=== PATIENT | female | born 1970 | race Caucasian/White ===

== ENCOUNTER 2022-10-16 09:45 | Outpatient (RCR) | payer OTHER, SELFPAY ==
--- NOTE | 2022-08-20 14:57 | OT.OP.EVAL ---
Visit Care Team Role Provider Type Salma Benítez MD Attending Provider Non-Staff Referring Provider Specialty: Medical Address: [address] [place] [address], [id number] Email: Occupational Therapy Initial Evaluation OT Outpatient Adult Evaluation Start: 08/20/22 14:35 Freq: Status: Active Protocol: Document 08/20/22 14:36 AMS (Rec: 08/20/22 14:57 AMS [id number]) Goals Siebel Developer Goals 1. Dorys will be modified independent with home exercise program utilizing provided written and visual instructions from therapist. 2. Dorys will present with increased ability to participate in meaningful activities, including completion of work based tasks due to reduction of pain/ discomfort of R UE. This will be evidenced by Dorys's indication of 2 to 3 out of 10 on the Pain Assessment Grid relative to the R elbow. 3. Dorys will be able to verbally identify 2 to 3 different strategies/ compensatory techniques that she can utilize in the work environment. Assessment/Plan Treatment Assessment Patient is a 52 year-old left hand dominant female referred to outpatient OT secondary to chronic right lateral epicondylitis. Dorys reported symptoms presented initially in 2004 likely d/t [employer] work. She reported previously receiving therapy for this condition. 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 She is managing the symptoms via prescribed pain meds and using available carts when needed to transport items. 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 Indication of 5 to 6 out of 10 on the Pain Assessment Grid relative to the right elbow. Report of aggravation of symptoms at right lateral elbow w/ resisted R wrist extension and R middle finger extension w/ elbow in extension. She avg 27.0# of force w/ R compound filler w/ elbow in 90 degrees in flexion and 28.0# of force w/ R compound filler w/ elbow in extension w/ dynamometer II strength testing versus 94.0# of force w/ L compound filler w/ elbow in 90 degrees in flexion and 96. 0# of force w/ elbow in extension w/ dynamometer II strength testing indicating R compound filler weakness, although, there was not a significant difference between compound filler strengths with right elbow in flexion versus extension. Dorys would likely benefit from outpatient OT to address pain/ discomfort, R compound filler weakness, and develop HEP, to support her ability to engage in meaningful activities in a variety of environments with inclusion of R UE. Length of treatment (weeks) 8 Plan of Care Start Date 08/20/22 Plan of Care End Date 10/15/22 Comment 1 to 2 times per week Therapeutic Contents Active Range of Motion, Adaptive Equipment Education, Client Education,Functional Activities,Home Exercise Program,Joint Protection, Manual Therapy,Education,Self- Care,Therapeutic Activities, Therapeutic Exercises, Modalities Modalities As Needed,As Prescribed Additional Types of Modalities Ultrasound/Ice massage/Ice/ Heat
--- NOTE | 2022-09-04 11:58 | OT.OP.TRT ---
Visit Care Team Role Provider Type Salma Benítez MD Attending Provider Non-Staff Referring Provider Specialty: Medical Address: [address] [place] [address], [address] Email: Occupational Therapy Treatment Note OT Outpatient Treatment Note - Adult Start: 08/20/22 14:35 Freq: Status: Active Protocol: Document 09/04/22 11:42 AMS (Rec: 09/04/22 11:58 AMS [id number]) OT Outpatient Adult Treatment Note Session Time Visit Start Time 10:45 Visit Stop Time 11:20 Total Visit Minutes 35 Visit Information Visit Number 03/28 Plan of Care Dates 08/20/22 - 10/15/22 Insurance Information Prime; EVAL CHARGE ONLY --> then 12 auth visits Setting Treatment Setting Outpatient Care Visit Type Note Type Treatment Note General Information General Information Patient is a 52 year-old left hand dominant female referred to outpatient OT secondary to chronic right lateral epicondylitis. - Subjective Identification Type Name Identification Reconciled With Medical Record Observations Report of being ill previous week; report of 6-7 out of 10 on the Pain Assessment Grid relative to right lateral elbow w/ use. Denied any pain/ discomfort at rest post- ultrasound treatment. Report of skin irritation post- kinesiotape use given frequent removal of tape (prior to tape falling off). Reported difficulty icing given current set-up limits ability to engage in other tasks while in use. Patient/Caregiver Compliance with Home Good Exercise Program - Objective Objective Measurements Please refer to below for progress towards meeting established OT goals. Kitchen Mechanic Goals 1. Dorys will be modified independent with home exercise program utilizing provided written and visual instructions from therapist. 2. Dorys will present with increased ability to participate in meaningful activities, including completion of work based tasks due to reduction of pain/ discomfort of R UE. This will be evidenced by Dorys's indication of 2 to 3 out of 10 on the Pain Assessment Grid relative to the R elbow. 3. Dorys will be able to verbally identify 2 to 3 different strategies/ compensatory techniques that she can utilize in the work environment. - Treatment 2 Descriptor Ultrasound. 20% duty cycle, 2. 0 w/cm2. x 10 minutes. R lateral elbow; address swelling of inflammation extensors. Skin intact pre- and post- treatment. No complaints of pain/discomfort w/ modality use. 1 Descriptor Reviewed HEP. Reviewed distal wrist stretches; discomfort reported w/ elbow extension combined w/ forearm supination and wrist/digit extension. Reviewed control flexion 30 sec w/ need to support/ stabilize proximal forearm/arm w/ elbow in extension. Instructed in additional stretch (elbow ext w/ wrist/ digit ext --> going to forearm supination w/ wrist/digit extension --> to wrist flexion combined w/ wrist flexion). Discussed use of geetha bandage and/or investing in ice wrap w / attached velcro straps. - Assessment Assessment of Improvement Report of 6-7 out of 10 on Pain Assesssment Grid relative to right elbow w/ movement/ when arm in use. QuickDASH UE Outcome Measure Score = 29.55; QuickDASH Work Module Score = 50.00. QuickDASH Sports/ Performing Arts Module Score = 50.00. Scores indicate that Dorys is limited in her ability to engage in meaningful tasks in various environments, including work and recreational settings. (+) report of execution of home exercise program; reviewed importance of proximal stabilization w/ controlled wrist flexion. Included new stretch; rec 2 to 3 times per day. Discussion re: problem solving different strategies for icing given current method has 'ice bag' falling off right elbow. Discussion re: use of different motor pattern /wrist/digit flexors w/ object manipulation to reduce aggravation of inflamed/ irritated muscles. 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 - Plan Therapy Recommendations Continue with Current Program, Advance per Rehabilitation Protocol
--- NOTE | 2022-09-10 14:31 | OT.OP.TRT ---
Visit Care Team Role Provider Type Salma Benítez MD Attending Provider Non-Staff Referring Provider Specialty: Medical Address: [address] [place] [address], [phone] Email: Occupational Therapy Treatment Note OT Outpatient Treatment Note - Adult Start: 08/20/22 14:35 Freq: Status: Active Protocol: Document 09/10/22 14:24 AMS (Rec: 09/10/22 14:31 AMS [id number]) OT Outpatient Adult Treatment Note Session Time Visit Start Time 09:45 Visit Stop Time 10:20 Total Visit Minutes 35 Visit Information Visit Number 04/28 Plan of Care Dates 08/20/22 - 10/15/22 Insurance Information Prime; EVAL CHARGE ONLY --> then 12 auth visits Setting Treatment Setting Outpatient Care Visit Type Note Type Treatment Note General Information General Information Patient is a 52 year-old left hand dominant female referred to outpatient OT secondary to chronic right lateral epicondylitis. - Subjective Identification Type Name Identification Reconciled With Medical Record Observations Report of using gel sleeve every other day; denial of pain at rest. Report of 7-8 out of 10 on the Pain Assessment Grid relative to right lateral elbow w/ use ( specifically w/ throwing ball w/ ). Report of execution of distal UE stretches and controlled wrist flexion. Patient/Caregiver Compliance with Home Good Exercise Program - Objective Objective Measurements Please refer to below for progress towards meeting established OT goals. Net Sql Developer Goals 1. Dorys will be modified independent with home exercise program utilizing provided written and visual instructions from therapist. 2. Dorys will present with increased ability to participate in meaningful activities, including completion of work based tasks due to reduction of pain/ discomfort of R UE. This will be evidenced by Dorys's indication of 2 to 3 out of 10 on the Pain Assessment Grid relative to the R elbow. 3. Dorys will be able to verbally identify 2 to 3 different strategies/ compensatory techniques that she can utilize in the work environment. - Treatment 2 Descriptor Ultrasound. 20% duty cycle, 2. 0 w/cm2. x 10 minutes. R lateral elbow; address swelling of inflammation extensors. Skin intact pre- and post- treatment. No complaints of pain/discomfort w/ modality use. 1 Descriptor Red flex bar. Eccentric contraction of wrist extensors . 1 set of 5 repetitions. - Assessment Assessment of Improvement Report of 7-8 out of 10 on verbal pain scale relative to right lateral elbow w/ playing catch w/ . Denied pain at rest. Invested in gel sleeve for right elbow w/ intermittent use. Reviewed use of different motor pattern/ wrist/digit flexors w/ object manipulation to reduce aggravation of inflamed/ irritated muscles. Introduced red flex bar eccentric contraction of wrist extensors ; report of pain/discomfort. Thus, ceased exercise at 5 repetitions. 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 Home Exercise Program 09/04/22 = Reviewed distal wrist stretches; discomfort reported w/ elbow extension combined w/ forearm supination and wrist/digit extension. Reviewed controlled wrist flexion 30 sec w/ need to support/stabilize proximal forearm/arm w/ elbow in extension. Reviewed elbow ext w/ wrist/digit ext --> going to forearm supination w/ wrist /digit extension --> to wrist flexion combined w/ wrist flexion. Discussed use of geetha bandage and/or investing in ice wrap w/ attached velcro straps. - Plan Therapy Recommendations Continue with Current Program, Advance per Rehabilitation Protocol
--- NOTE | 2022-09-19 15:19 | OT.OP.TRT ---
Visit Care Team Role Provider Type Salma Benítez MD Attending Provider Non-Staff Referring Provider Specialty: Medical Address: [address] [place] [address], [address] Email: Occupational Therapy Treatment Note OT Outpatient Treatment Note - Adult Start: 08/20/22 14:35 Freq: Status: Active Protocol: Document 09/19/22 15:13 AMS (Rec: 09/19/22 15:19 AMS [id number]) OT Outpatient Adult Treatment Note Session Time Visit Start Time 09:50 Visit Stop Time 10:30 Total Visit Minutes 40 Visit Information Visit Number 05/26 Plan of Care Dates 08/20/22 - 10/15/22 Insurance Information Prime; EVAL CHARGE ONLY --> then 12 auth visits Setting Treatment Setting Outpatient Care Visit Type Note Type Treatment Note General Information General Information Patient is a 52 year-old left hand dominant female referred to outpatient OT secondary to chronic right lateral epicondylitis. - Subjective Identification Type Name Identification Reconciled With Medical Record Observations (+) report of compliance w/ HEP. Patient/Caregiver Compliance with Home Good Exercise Program - Objective Objective Measurements Please refer to below for progress towards meeting established OT goals. Correctional Supervisor Lieutenant Goals 1. Dorys will be modified independent with home exercise program utilizing provided written and visual instructions from therapist. 2. Dorys will present with increased ability to participate in meaningful activities, including completion of work based tasks due to reduction of pain/ discomfort of R UE. This will be evidenced by Dorys's indication of 2 to 3 out of 10 on the Pain Assessment Grid relative to the R elbow. 3. Dorys will be able to verbally identify 2 to 3 different strategies/ compensatory techniques that she can utilize in the work environment. - Treatment 2 Descriptor Ultrasound. 20% duty cycle, 2. 0 w/cm2. x 10 minutes. R lateral elbow; address swelling of inflammation extensors. Skin intact pre- and post- treatment. No complaints of pain/discomfort w/ modality use. 1 Descriptor Red flex bar. Eccentric contraction of wrist extensors . 1 set of 5 repetitions. - Assessment Assessment of Improvement Consistent report of pain/ discomfort at the R lateral epicondyle; increased discomfort reported w/ gentle manual to wrist extensors. Report of difficulty w/ completing work tasks d/t pain /discomfort. Have been limited in ability to progress resistance exercises d/t pain/ discomfort. Instructed to execute controlled wrist flexion against gravity without proximal UE support 3 sets of 15 repetitions versus with proximal UE support given limited ability to use resistance. If unable to progress to resistance exercises, may need to send client back to PCP. Overall, good session. 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 Home Exercise Program 09/04/22 = Reviewed distal wrist stretches; discomfort reported w/ elbow extension combined w/ forearm supination and wrist/digit extension. Reviewed controlled wrist flexion 30 sec w/ need to support/stabilize proximal forearm/arm w/ elbow in extension. Reviewed elbow ext w/ wrist/digit ext --> going to forearm supination w/ wrist /digit extension --> to wrist flexion combined w/ wrist flexion. Discussed use of geetha bandage and/or investing in ice wrap w/ attached velcro straps. - Plan Therapy Recommendations Continue with Current Program, Advance per Rehabilitation Protocol
--- NOTE | 2022-09-25 16:00 | OT.OP.TRT ---
Visit Care Team Role Provider Type Salma Beíntez MD Attending Provider Non-Staff Referring Provider Specialty: Medical Address: [address] [place] [address], [address] Email: Occupational Therapy Treatment Note OT Outpatient Treatment Note - Adult Start: 08/20/22 14:35 Freq: Status: Active Protocol: Document 09/25/22 16:00 AMS (Rec: 09/26/22 08:38 AMS [id number]) OT Outpatient Adult Treatment Note Session Time Visit Start Time 09:45 Visit Stop Time 10:30 Total Visit Minutes 45 Visit Information Visit Number 06/26 Plan of Care Dates 08/20/22 - 10/15/22 Insurance Information Prime; EVAL CHARGE ONLY --> then 12 auth visits Setting Treatment Setting Outpatient Care Visit Type Note Type Treatment Note General Information General Information Patient is a 52 year-old left hand dominant female referred to outpatient OT secondary to chronic right lateral epicondylitis. - Subjective Identification Type Name Identification Reconciled With Medical Record Observations Report of soreness after last treatment session in the afternoon; 'zapping' w/ report of 8-9 out of 10. Pain presented x 3 days. Dorys reports using sleeve to 'ice' elbow and has been executing recommended exercises ( unsupported arm w/ controlled wrist flexion) 3 x 10. Patient/Caregiver Compliance with Home Good Exercise Program - Objective Objective Measurements Please refer to below for progress towards meeting established OT goals. Usp Goals 1. Dorys will be modified independent with home exercise program utilizing provided written and visual instructions from therapist. 2. Dorys will present with increased ability to participate in meaningful activities, including completion of work based tasks due to reduction of pain/ discomfort of R UE. This will be evidenced by Dorys's indication of 2 to 3 out of 10 on the Pain Assessment Grid relative to the R elbow. 3. Dorys will be able to verbally identify 2 to 3 different strategies/ compensatory techniques that she can utilize in the work environment. - Treatment 3 Descriptor Manual. 2 Descriptor Ultrasound. 20% duty cycle, 2. 0 w/cm2. x 10 minutes. R lateral elbow; address swelling of inflammation extensors. Skin intact pre- and post- treatment. No complaints of pain/discomfort w/ modality use. 1 Descriptor Red flex bar. Eccentric contraction of wrist extensors . 1 set of 5 repetitions. - Assessment Assessment of Improvement Consistent report of pain/ discomfort at the R lateral epicondyle; increased discomfort reported w/ gentle manual to wrist extensors. Report of difficulty w/ completing work tasks d/t pain /discomfort. Increased pain/ discomfort w/ 'zapping' w/ 8-9 out of 10 on verbal pain scale w/ lateral epicondyle proximal; unable to reproduce symptoms w/ prolonged elbow flexion 30 sec hold and/or resting of elbow on arm rest. Tenderness palpated along lateral ulnar border. US completed to address swelling/ inflammation. Overall, fair session. Given increased symptoms post- previous session, did not progress to red flex bar. Rec consideration of light controlled wrist flexion w/ weight 1# DB as an alternative . 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 Home Exercise Program 09/25/22 = Controlled wrist flex 30 sec without proximal support of forearm/arm w/ elbow in ext; 3 x 10 repetitions. Instructed in passive RD of wrist w/ elbow extended and hand positioned on TT w/ hold of 20 to 30 seconds. 09/04/22 = Reviewed distal wrist stretches; discomfort reported w/ elbow extension combined w/ forearm supination and wrist/digit extension. Reviewed controlled wrist flexion 30 sec w/ need to support/stabilize proximal forearm/arm w/ elbow in extension. Reviewed elbow ext w/ wrist/digit ext --> going to forearm supination w/ wrist /digit extension --> to wrist flexion combined w/ wrist flexion. Discussed use of geetha bandage and/or investing in ice wrap w/ attached velcro straps. - Plan Therapy Recommendations Continue with Current Program, Advance per Rehabilitation Protocol
--- NOTE | 2022-10-02 09:36 | OT.OP.TRT ---
Visit Care Team Role Provider Type Salma Benítez MD Attending Provider Non-Staff Referring Provider Specialty: Medical Address: [address] [place] [address], [address] Email: Occupational Therapy Treatment Note OT Outpatient Treatment Note - Adult Start: 08/20/22 14:35 Freq: Status: Active Protocol: Document 10/02/22 09:35 [facility] (Rec: 10/02/22 09:36 [facility] [id number]) OT Outpatient Adult Treatment Note Setting Treatment Setting Outpatient Care Visit Type Note Type Administrative Note - Subjective Observations Re-faxed initial evaluation to referring physician. 2nd attempt. - - - -
--- NOTE | 2022-10-09 14:53 | OT.OP.TRT ---
Visit Care Team Role Provider Type Salma Benítez MD Attending Provider Non-Staff Referring Provider Specialty: Medical Address: [address] [place] [address], [address] Email: Occupational Therapy Treatment Note OT Outpatient Treatment Note - Adult Start: 08/20/22 14:35 Freq: Status: Active Protocol: Document 10/09/22 14:42 AMS (Rec: 10/09/22 14:53 AMS [id number]) OT Outpatient Adult Treatment Note Session Time Visit Start Time 09:45 Visit Stop Time 10:30 Total Visit Minutes 45 Visit Information Visit Number 07/26 Plan of Care Dates 08/20/22 - 10/15/22 Insurance Information Prime; EVAL CHARGE ONLY --> then 12 auth visits Setting Treatment Setting Outpatient Care Visit Type Note Type Treatment Note General Information General Information Patient is a 52 year-old left hand dominant female referred to outpatient OT secondary to chronic right lateral epicondylitis. - Subjective Identification Type Name Identification Reconciled With Medical Record Observations Report of executing stretches. Patient/Caregiver Compliance with Home Good Exercise Program - Objective Objective Measurements Please refer to below for progress towards meeting established OT goals. Longterm Goals 1. Dorys will be modified independent with home exercise program utilizing provided written and visual instructions from therapist. 10/09/22 = 25% met; upgraded HEP 2. Dorys will present with increased ability to participate in meaningful activities, including completion of work based tasks due to reduction of pain/discomfort of R UE. This will be evidenced by Dorys's indication of 2 to 3 out of 10 on the Pain Assessment Grid relative to the R elbow. 3. Dorys will be able to verbally identify 2 to 3 different strategies/ compensatory techniques that she can utilize in the work environment. - Treatment 3 Descriptor Manual. 2 Descriptor Ultrasound. 20% duty cycle, 2. 0 w/cm2. x 10 minutes. R lateral elbow; address swelling of inflammation ulnar deviators/extensors. Skin intact pre- and post- treatment. No complaints of pain/discomfort w/ modality use. Exercises 2 Descriptor Wrist strengthening. Wrist ext combined w/ 5 sec resisted descent into flex. 2 x 10. 1# DB. Wrist UD combined w/ 5 sec [address]. Elbow in ext/forearm in neutral. 2 x 10. 1# DB. 1 Descriptor Passive wrist flex w/ elbow ext and digit ext. Hold of 20 seconds. x 1 rep. Passive wrist ext w/ elbow ext and wrist/digit ext and forearm supination. Hold of 20 seconds. x [address] Elbow ext/forearm pronation w/ hand positioned on TT. Hold of 20 seconds. x 1 rep. - Assessment Assessment of Improvement Reported of executing wrist flexion motion x 3 days w/ work tasks. Able to tolerate use of 1# DB; upgraded home exercise program and exercises being completed in treatment session. Need to complete POC at time of next treatment session. 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 Home Exercise Program 10/09/22 = Provided w/ latex free medium resistance personal TB for home use; recommended starting w/ 1 x 10 reps every other day and increasing to 2 x 10 reps as tolerated. Wrist UD w/ controlled return to neutral w / hand supported on TT w/ elbow in 90 degrees flex; wrist ext w/ controlled return to wrist flex w/ elbow in 90 degrees flex. 09/25/22 = Controlled wrist flex 30 sec without proximal support of forearm/arm w/ elbow in ext; 3 x 10 repetitions. Instructed in passive RD of wrist w/ elbow extended and hand positioned on TT w/ hold of 20 to 30 seconds. 09/04/22 = Reviewed distal wrist stretches; discomfort reported w/ elbow extension combined w/ forearm supination and wrist/digit extension. Reviewed controlled wrist flexion 30 sec w/ need to support/stabilize proximal forearm/arm w/ elbow in extension. Reviewed elbow ext w/ wrist/digit ext --> going to forearm supination w/ wrist /digit extension --> to wrist flexion combined w/ wrist flexion. Discussed use of geetha bandage and/or investing in ice wrap w/ attached velcro straps. - Plan Therapy Recommendations Continue with Current Program, Advance per Rehabilitation Protocol
--- NOTE | 2022-10-16 12:10 | OT.OP.TRT ---
Visit Care Team Role Provider Type Salma Benítez MD Attending Provider Non-Staff Referring Provider Specialty: Medical Address: [address] [place] [address], [id number] Email: Occupational Therapy Treatment Note OT Outpatient Treatment Note - Adult Start: 08/20/22 14:35 Freq: Status: Active Protocol: Document 10/16/22 11:59 AMS (Rec: 10/16/22 12:10 AMS [id number]) OT Outpatient Adult Treatment Note Session Time Visit Start Time 09:45 Visit Stop Time 10:30 Visit Information Visit Number [id number] Plan of Care Dates 10/15/22 - 11/19/22 Insurance Information Prime; EVAL CHARGE ONLY --> then 12 auth visits Setting Treatment Setting Outpatient Care Visit Type Note Type Progress Note General Information General Information Patient is a 52 year-old left hand dominant female referred to outpatient OT secondary to chronic right lateral epicondylitis. - Subjective Identification Type Name Identification Reconciled With Medical Record Observations Report of executing stretches and utilizing a can for strengthening; report of having 2 ways to 'ice' elbow ( one at home and one at work). Report of intent on investing in personal 1# DB for home use . Patient/Caregiver Compliance with Home Good Exercise Program - Objective Objective Measurements Please refer to below for progress towards meeting established OT goals. Gl Accountant Goals 1. Dorys will be modified independent with home exercise program utilizing provided written and visual instructions from therapist. = 50% met 2. Dorys will present with increased ability to participate in meaningful activities, including completion of work based tasks due to reduction of pain/ discomfort of R UE. This will be evidenced by Dorys' s indication of 2 to 3 out of 10 on the Pain Assessment Grid relative to the R elbow. 3. Dorys will be able to verbally identify 2 to 3 different strategies/ compensatory techniques that she can utilize in the work environment. 10/16/22 = 75% met - Treatment 3 Descriptor Manual. 2 Descriptor Ultrasound. 20% duty cycle, 2. 0 w/cm2. x 10 minutes. R lateral elbow; address swelling of inflammation ulnar deviators/extensors. Skin intact pre- and post- treatment. No complaints of pain/discomfort w/ modality use. Exercises 2 Descriptor Wrist strengthening. Wrist ext combined w/ 5 sec resisted descent into flex. 2 x 10. 1# DB. Wrist UD combined w/ 5 sec [address] into [address]. Elbow in ext/forearm in neutral. 3 x 10. 1# DB. 1 Descriptor Range of Motion; PROM/AROM Passive wrist flex w/ elbow ext and digit ext. Hold of 20 seconds. x 1 rep. Passive wrist ext w/ elbow ext and wrist/digit ext and forearm supination. Hold of 20 seconds. x [address] Elbow ext/forearm pronation w/ hand positioned on TT. Hold of 20 seconds. x 1 rep. Active R wrist RD/UD. 2 x 10. - Assessment Assessment of Improvement Dorys has made some progress w/ outpatient OT; clinician has been able to advance recommended home exercises via utilization of 1# DB given discomfort/preference for DB versus TB. Dorys is also demonstrating increased awareness to modifying approach/techniques w/ every day and work tasks. Despite progress in these areas, Dorys continues to be limited in her day-to-day life w/ active participation in meaningful activities/work based tasks. 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 Home Exercise Program 10/09/22 = Provided w/ latex free medium resistance personal TB for home use; recommended starting w/ 1 x 10 reps every other day and increasing to 2 x 10 reps as tolerated. Wrist UD w/ controlled return to neutral w / hand supported on TT w/ elbow in 90 degrees flex; wrist ext w/ controlled return to wrist flex w/ elbow in 90 degrees flex. 09/25/22 = Controlled wrist flex 30 sec without proximal support of forearm/arm w/ elbow in ext; 3 x 10 repetitions. Instructed in passive RD of wrist w/ elbow extended and hand positioned on TT w/ hold of 20 to 30 seconds. 09/04/22 = Reviewed distal wrist stretches; discomfort reported w/ elbow extension combined w/ forearm supination and wrist/digit extension. Reviewed controlled wrist flexion 30 sec w/ need to support/stabilize proximal forearm/arm w/ elbow in extension. Reviewed elbow ext w/ wrist/digit ext --> going to forearm supination w/ wrist /digit extension --> to wrist flexion combined w/ wrist flexion. Discussed use of geetha bandage and/or investing in ice wrap w/ attached velcro straps. - Plan Therapy Recommendations Continue with Current Program, Advance per Rehabilitation Protocol Comment 5 weeks Frequency of Treatment Once a Week Therapeutic Contents Active Range of Motion, Adaptive Equipment Education, Client Education,Functional Activities,Home Exercise Program,Joint Protection, Manual Therapy,Education,Self- Care,Therapeutic Activities, Therapeutic Exercises, Modalities Modalities As Needed,As Prescribed Additional Types of Modalities Heat/Ice/Contrast/Ultrasound
--- NOTE | 2022-10-16 16:00 | OT.OPPN ---
Current Diagnoses Pain in right elbow (10/16/22) Lateral epicondylitis, unspecified elbow (10/16/22) Weakness (10/16/22) OT Progress Note OT Outpatient Treatment Note - Adult Start: 08/20/22 14:35 Freq: Status: Active Protocol: Document 10/16/22 11:59 AMS (Rec: 10/16/22 12:10 AMS [id number]) OT Outpatient Adult Treatment Note Session Time Visit Start Time 09:45 Visit Stop Time 10:30 Visit Information Visit Number 08/[id number] Plan of Care Dates 10/15/22 - 11/19/22 Insurance Information Prime; EVAL CHARGE ONLY --> then 12 auth visits Setting Treatment Setting Outpatient Care Visit Type Note Type Progress Note General Information General Information Patient is a 52 year-old left hand dominant female referred to outpatient OT secondary to chronic right lateral epicondylitis. - Subjective Identification Type Name Identification Reconciled With Medical Record Observations Report of executing stretches and utilizing a can for strengthening; report of having 2 ways to 'ice' elbow ( one at home and one at work). Report of intent on investing in personal 1# DB for home use . Patient/Caregiver Compliance with Home Good Exercise Program - Objective Objective Measurements Please refer to below for progress towards meeting established OT goals. Retirement Goals 1. Dorys will be modified independent with home exercise program utilizing provided written and visual instructions from therapist. = 50% met 2. Dorys will present with increased ability to participate in meaningful activities, including completion of work based tasks due to reduction of pain/ discomfort of R UE. This will be evidenced by Dorys' s indication of 2 to 3 out of 10 on the Pain Assessment Grid relative to the R elbow. 3. Dorys will be able to verbally identify 2 to 3 different strategies/ compensatory techniques that she can utilize in the work environment. 10/16/22 = 75% met - Treatment 3 Descriptor Manual. 2 Descriptor Ultrasound. 20% duty cycle, 2. 0 w/cm2. x 10 minutes. R lateral elbow; address swelling of inflammation ulnar deviators/extensors. Skin intact pre- and post- treatment. No complaints of pain/discomfort w/ modality use. Exercises 2 Descriptor Wrist strengthening. Wrist ext combined w/ 5 sec resisted descent into flex. 2 x 10. 1# DB. Wrist UD combined w/ 5 sec resisted descent into RD. Elbow in ext/forearm in neutral. 3 x 10. 1# DB. 1 Descriptor Range of Motion; PROM/AROM Passive wrist flex w/ elbow ext and digit ext. Hold of 20 seconds. x 1 rep. Passive wrist ext w/ elbow ext and wrist/digit ext and forearm supination. Hold of 20 seconds. x [address] Elbow ext/forearm pronation w/ hand positioned on TT. Hold of 20 seconds. x 1 rep. Active R wrist RD/UD. 2 x 10. - Assessment Assessment of Improvement Dorys has made some progress w/ outpatient OT; clinician has been able to advance recommended home exercises via utilization of 1# DB given discomfort/preference for DB versus TB. Dorys is also demonstrating increased awareness to modifying approach/techniques w/ every day and work tasks. Despite progress in these areas, Dorys continues to be limited in her day-to-day life w/ active participation in meaningful activities/work based tasks. 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 Home Exercise Program 10/09/22 = Provided w/ latex free medium resistance personal TB for home use; recommended starting w/ 1 x 10 reps every other day and increasing to 2 x 10 reps as tolerated. Wrist UD w/ controlled return to neutral w / hand supported on TT w/ elbow in 90 degrees flex; wrist ext w/ controlled return to wrist flex w/ elbow in 90 degrees flex. 09/25/22 = Controlled wrist flex 30 sec without proximal support of forearm/arm w/ elbow in ext; 3 x 10 repetitions. Instructed in passive RD of wrist w/ elbow extended and hand positioned on TT w/ hold of 20 to 30 seconds. 09/04/22 = Reviewed distal wrist stretches; discomfort reported w/ elbow extension combined w/ forearm supination and wrist/digit extension. Reviewed controlled wrist flexion 30 sec w/ need to support/stabilize proximal forearm/arm w/ elbow in extension. Reviewed elbow ext w/ wrist/digit ext --> going to forearm supination w/ wrist /digit extension --> to wrist flexion combined w/ wrist flexion. Discussed use of geetha bandage and/or investing in ice wrap w/ attached velcro straps. - Plan Therapy Recommendations Continue with Current Program, Advance per Rehabilitation Protocol Comment 5 weeks Frequency of Treatment Once a Week Therapeutic Contents Active Range of Motion, Adaptive Equipment Education, Client Education,Functional Activities,Home Exercise Program,Joint Protection, Manual Therapy,Education,Self- Care,Therapeutic Activities, Therapeutic Exercises, Modalities Modalities As Needed,As Prescribed Additional Types of Modalities Heat/Ice/Contrast/Ultrasound If you are in agreement with this Plan of Care, please return a signed and dated copy. I have reviewed this Plan of Care and certify that the skilled therapy services above are required to meet the patient?s needs. Physician Signature Date Printed Name and Credentials Clinical Instructor Signature Printed Name and Credentials
--- NOTE | 2022-11-21 09:11 | OT.OP.DC ---
Visit Care Team Role Provider Type Salma Benítez MD Attending Provider Non-Staff Referring Provider Address: [address] [place] [address], [id number] Email: OT Outpatient OT Outpatient Adult Evaluation Start: 08/20/22 14:35 Freq: Status: Active Protocol: Document 08/20/22 14:36 AMS (Rec: 08/20/22 14:57 AMS [id number]) Goals Snf Goals Snf Goals 1. Dorys will be modified independent with home exercise program utilizing provided written and visual instructions from therapist. 2. Dorys will present with increased ability to participate in meaningful activities, including completion of work based tasks due to reduction of pain/ discomfort of R UE. This will be evidenced by Dorys's indication of 2 to 3 out of 10 on the Pain Assessment Grid relative to the R elbow. 3. Dorys will be able to verbally identify 2 to 3 different strategies/ compensatory techniques that she can utilize in the work environment. Assessment/Plan Assessment Treatment Assessment Patient is a 52 year-old left hand dominant female referred to outpatient OT secondary to chronic right lateral epicondylitis. Dorys reported symptoms presented initially in 2004 likely d/t [employer] work. She reported previously receiving therapy for this condition. 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 She is managing the symptoms via prescribed pain meds and using available carts when needed to transport items. 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 Indication of 5 to 6 out of 10 on the Pain Assessment Grid relative to the right elbow. Report of aggravation of symptoms at right lateral elbow w/ resisted R wrist extension and R middle finger extension w/ elbow in extension. She avg 27.0# of force w/ R rn clinician w/ elbow in 90 degrees in flexion and 28.0# of force w/ R rn clinician w/ elbow in extension w/ dynamometer II strength testing versus 94.0# of force w/ L rn clinician w/ elbow in 90 degrees in flexion and 96. 0# of force w/ elbow in extension w/ dynamometer II strength testing indicating R rn clinician weakness, although, there was not a significant difference between rn clinician strengths with right elbow in flexion versus extension. 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 Plan Length of treatment (weeks) 8 Plan of Care Start Date 08/20/22 Plan of Care End Date 10/15/22 Comment 1 to 2 times per week Therapeutic Contents Active Range of Motion, Adaptive Equipment Education, Client Education,Functional Activities,Home Exercise Program,Joint Protection, Manual Therapy,Education,Self- Care,Therapeutic Activities, Therapeutic Exercises, Modalities Modalities As Needed,As Prescribed Additional Types of Modalities Ultrasound/Ice massage/Ice/ Heat OT Outpatient Treatment Note - Adult Start: 08/20/22 14:35 Freq: Status: Active Protocol: Document 11/21/22 09:09 [facility] (Rec: 11/21/22 09:11 [facility] [id number]) OT Outpatient Adult Treatment Note Visit Information Visit Number 08/26 Plan of Care Dates 10/15/22 - 11/19/22 Insurance Information Prime; EVAL CHARGE ONLY --> then 12 auth visits Setting Treatment Setting Outpatient Care Visit Type Note Type Discharge Summary - Subjective Observations Dorys was last seen in the outpatient setting by OT and POC 11/19/22; given that she has not been seen in > 30 days and POC recommend d/c from outpatient OT at this time and therapist to re-evaluate as deemed appropriate by PCP with new referral. - Objective Objective Measurements Please refer to below for progress towards meeting established OT goals. Snf Goals ALL GOALS D/C 11/21/22 1. Dorys will be modified independent with home exercise program utilizing provided written and visual instructions from therapist. = 50% met 2. Dorys will present with increased ability to participate in meaningful activities, including completion of work based tasks due to reduction of pain/ discomfort of R UE. This will be evidenced by Dorys' s indication of 2 to 3 out of 10 on the Pain Assessment Grid relative to the R elbow. 3. Dorys will be able to verbally identify 2 to 3 different strategies/ compensatory techniques that she can utilize in the work environment. 10/16/22 = 75% met - - Assessment Assessment of Improvement Dorys was last seen in the outpatient setting by OT and POC 11/19/22; given that she has not been seen in > 30 days and POC recommend d/c from outpatient OT at this time and therapist to re-evaluate as deemed appropriate by PCP with new referral. - Plan Therapy Recommendations Discharge from Occupational Therapy
== END 2022-11-21 15:05 | disposition home or self-care (01) ==
LOC: OT 09:45
PROVIDERS: Referring Provider Student in an Organized Health Care Education/Training Program; Visit Provider Student in an Organized Health Care Education/Training Program
DX: M77.10 Lateral epicondylitis, unspecified elbow (principal); M25.521 Pain in right elbow; R53.1 Weakness
CPT/HCPCS: 97035; 97110; 97140; 97165; 97530

== ENCOUNTER → 2024-06-01 13:39 | Outpatient (CLI) | payer OTHER, SELFPAY ==
--- NOTE | 2024-06-01 13:41 | DI.ECHO.S_ITS ---
[facility] : : [address] : : [place] : : [id number] : : Phone: [phone] Echocardiogram Report + + :Name: ZEINA SWENSON Study Date: 06/01/2024 Height: 69 in : :[facility] ReadingLocation: Weight: 202 lb : : Gender: Female BSA: 2.1 m2 : :: 1970 Age: 53 yrs BP: 147/91 mmHg: :Reason For Study: PALPITATIONS : :Ordering Physician: XIN GIBBONS Performed By: Bao Miller : :Referring: XIN GIBBONS : + + Interpretation Summary 1. Left ventricular contractility is normal. Estimate ejection fraction is greater than 55% with no segmental wall motion abnormalities. Mild asymmetrical septal hypertrophy without obstruction. Impaired relaxation. 2. The right ventricular contractility is normal. 3. All cardiac chambers are of normal size. 4. No significant valvular abnormalities. 5. No obvious intracardiac shunts. 6. No obvious intracardiac masses nor thrombi. 7. No hemodynamically significant pericardial effusion. 8. Borderline enlargement of the ascending thoracic aorta without obvious dissection. Conclusion: Normal biventricular systolic function with no significant valvular abnormalities. Procedure: A two-dimensional transthoracic echocardiogram with color flow and Doppler was performed. The study quality was technically good. There is no prior echocardiogram noted for this patient. The patient was in normal sinus rhythm during the exam. Left Ventricle: The left ventricle is normal in size. There is normal left ventricular wall thickness. There is no ventricular septal defect visualized. The ejection fraction is estimated to be 55-60%. There are no focal wall motion abnormalities. Right Ventricle: The right ventricle is normal in size and function. Atria: The left atrial size is normal. Right atrial size is normal. There is no Doppler evidence for an interatrial shunt. Mitral Valve: The mitral valve leaflets appear normal. There is no evidence of stenosis, fluttering, or prolapse. There is trace mitral regurgitation. Aortic Valve: The aortic valve is trileaflet. The aortic valve opens well. No aortic regurgitation is present. Tricuspid Valve: The tricuspid valve leaflets are thin and pliable. There is a trace or physiologic amount of tricuspid regurgitation. Pulmonic Valve: The pulmonic valve leaflets are thin and pliable; valve motion is normal. There is no pulmonic valvular regurgitation. Great Vessels: The aortic root is normal size. The ascending aorta is mildly enlarged. The pulmonary artery is normal size. The inferior vena cava was not visualized. Pericardium/ Pleura There is no pericardial effusion. There is no pleural effusion. MMode/2D Measurements & Calculations LVIDd: 4.9 cm LVOT diam: 2.4 cm LVIDs: 3.0 cm Ao root diam: 3.5 cm FS: 38.2 % Ao Arch Diam (Prox Trans): 1.3 cm EPSS: 0.64 cm IVSd: 1.1 cm LVPWd: 0.85 cm LV kincaid. diameter/BSA (cm/m^2): 2.4 LV sys. diameter/BSA (cm/m^2): 1.5 LA A2 area: 17.9 cm2 RA long axis: 4.6 cm LA A4 area: 15.3 cm2 RA area: 11.7 cm2 LA length (vol): 4.3 cm RA vol: 25.6 ml LA vol: 53.7 ml RA : 12.3 ml/m2 LA vol index: 25.9 ml/m2 RVD1 (basal): 3.3 cm RVD2 (mid): 2.4 cm TAPSE: 2.2 cm Doppler Measurements & Calculations Ao V2 max: 116.9 cm/sec LVOT Max Lorenzo: 87.3 cm/sec Ao V2 mean: 84.8 cm/sec LV V1 max P.0 mmHg Ao max P.5 mmHg LV V1 VTI: 22.3 cm Ao mean P.1 mmHg ZAHEER(I,D): 3.4 cm2 Ao V2 VTI: 29.0 cm ZAHEER(V,D): 3.3 cm2 sev ratio: 0.77 ZAHEER indexed to BSA (cm^2/m^2): 1.6 MV E max lorenzo: 69.8 cm/sec PA V2 max: 80.7 cm/sec MV A max lorenzo: 55.0 cm/sec PA V2 mean: 60.4 cm/sec MV E/A: 1.3 PA mean P.6 mmHg Med Peak E' Lorenzo: 7.3 cm/sec PA pr(Accel): 15.6 mmHg E/E' med: 9.6 Lat Peak E' Lorenzo: 8.5 cm/sec E/E' lat: 8.3 E/e' average: 8.9 MV dec time: 0.18 sec SV(LVOT): 98.0 ml Reading Physician:ULISSES
--- NOTE | 2024-06-01 17:29 | DI.NM.S_ITS ---
DATE OF SERVICE: 06/01/2024 EXERCISE STRESS TEST INDICATIONS: Chest discomfort, palpitation. CARDIAC STRESS: The patient underwent exercise stress test under the supervision of an attending staff using standard Ravindra protocol. She walked on Ravindra protocol for 9 minutes and 58 seconds, achieved maximum heart rate of 171 which was 102% of target heart rate. Resting blood pressure 141/81 and peak blood pressure 180/77 mmHg. MONET -30%. METS 12.8 METS of workload. Baseline rhythm sinus. During stress, no convincing ischemic changes seen. Some isolated PVCs without any ventricular tachycardia in recovery. No chest pain. [place] some shortness of breath. CONCLUSION: Exercise stress test is negative for inducible ischemia. Good exercise tolerance. MONET -30%. 12.8 METS of workload. Normal blood pressure response. The patient achieved 102% of target heart rate. Isolated PVCs in recovery without any complex arrhythmias. No chest pain. Had some shortness of breath. Overall, low-risk exercise stress test. Dorys Machado - MATTIE/frieda/NELLIE doc#: [id number]/job#: [id number] dd: 06/01/2024 17:10:00 dt: 06/01/2024 17:20:00 DICTATING MD/COPIES TO: Evita Lockhart MD COPIES MNE: DELANO;
== END ==
LOC: ECHO 13:40
PROVIDERS: Referring Provider Internal Medicine; Visit Provider Internal Medicine
DX: R00.2 Palpitations (principal); I77.89 Other specified disorders of arteries and arterioles; R07.89 Other chest pain
CPT/HCPCS: 93017; 93306